=== PATIENT | male | born 1985 | race Caucasian/White ===

== ENCOUNTER 2021-02-09 18:02 | Emergency (ER) | payer OTHER, SELFPAY ==
[2021-02-09 18:02] VITALS: BP 167/87; PULSE 101; RESP 18; TEMP 35.4; O2SAT 97; BMI 39.1
--- NOTE | 2021-02-09 19:23 | CT_ITS ---
STUDY: CT Spine Cervical W/O Contrast Injection 02/09/2021 7:57 PM REASON FOR EXAM: Male, 35 years old. NECK PAIN TECHNIQUE: High resolution transaxial imaging was performed without intravenous administration of contrast material. Sagittal and coronal images were reconstructed. Individualized dose optimization techniques were used for this CT. COMPARISON: None FINDINGS: Normal craniovertebral junction. Normal anterior atlantoaxial articulation. Normal odontoid process. There is straightening of the normal cervical lordosis. Normal vertebral bodies and posterior osseous elements. C2-3: Normal endplates. Normal disc height and morphology. Normal central canal and intervertebral neuroforamina. C3-4: Normal endplates. Normal disc height and morphology. Normal central canal and intervertebral neuroforamina. C4-5: Normal endplates. Normal disc height and morphology. Normal central canal and intervertebral neuroforamina. C5-6: Normal endplates. Normal disc height and morphology. Normal central canal and intervertebral neuroforamina. C6-7: Normal endplates. Normal disc height and morphology. Normal central canal and intervertebral neuroforamina. C7-T1: Normal endplates. Normal disc height and morphology. Normal central canal and intervertebral neuroforamina. Normal visualized soft tissue structures. IMPRESSION: (NOT LISTED IN ORDER OF SIGNIFICANCE) There is altered curvature of the normal cervical lordosis. This can suggest neck strain. Electronically Signed: Antonio Christian MD at 19:58 EST , Service support , CT/Spine Cervical without Contras
--- NOTE | 2021-02-09 19:23 | CT_ITS ---
STUDY: CT BRAIN WITHOUT CONTRAST REASON FOR EXAM: Male, 35 years old. HEADACHE Injury/Pain Technologist Notes PT HIT RT SIDE OF HEAD ON TRUCK BUMPER TECHNIQUE: Transaxial CT imaging of the brain was performed without administration of intravenous contrast material. Individualized dose optimization techniques were used for this CT. COMPARISON: None FINDINGS: Normal calvarium. Normal soft tissues. Normal size ventricles and extra-axial spaces for the patient''s age. Normal white matter tracts of the cerebral hemispheres. Normal basal ganglia and thalami. Normal brainstem. Normal cerebellum. There is no intracranial hemorrhage. There are no findings of an acute ischemic infarction. Normal visualized paranasal sinuses. ASPECTS 10 CT/Brain/Head without Contrast IMPRESSION: There are no acute intracranial findings. Electronically Signed: Antonio Christian MD at 19:57 EST , Service support ,
--- NOTE | 2021-02-09 19:43 | EX.ED.GENINJ ---
HPI History of Present Illness Chief Complaint: Head Injury Informant: patient Onset/Context/Timing Onset: Today Mechanism/Context: Fall Location of pain/injuries: Right shoulder Quality of Pain: Aching Location: Right side of his head Worsened by: Bright lights Relieved by: Nothing Associated Symptoms Associated Symptoms: Negative for Parasthesias, Weakness, Loss of function, Inability to ambulate and Loss of consciousness Narrative Narrative: Patient presents with a head injury that occurred today. Patient states he slipped and fell while he was blowing leaves. Patient states his head hit the bumper of a truck and a railroad tie. Patient states his pain is mainly on the right side of his head. Patient denies any loss of consciousness. Patient complains of pain in his right shoulder as well. Patient describes his pain as aching. Patient states nothing makes it better but it is worse with bright lights. [facility] Medical History Asthma Home Medications loratadine [Claritin] 10 mg PO DAILY 02/09/21 [History Last Taken Unknown] omeprazole 20 mg PO DAILY 02/09/21 [History Last Taken Unknown] Allergy/AdvReac Type Severity Reaction Status Date / Time amoxicillin Allergy Swelling Verified 02/09/21 18:05 clarithromycin [From Biaxin] Allergy Swelling Verified 02/09/21 18:05 levofloxacin [From Levaquin] Allergy Other Verified 02/09/21 18:05 Penicillins Allergy Swelling Verified 02/09/21 18:05 Surgical History History of cholecystectomy Social History Smoking Status: Never smoker ROS ROS ED Constitutional Constitutional ED: Denies chills or fever(s) Eyes Eyes: Denies blurry vision or change in vision ENT ENT ED: Denies rhinorrhea or sore throat Cardiovascular Cardiovascular: Denies chest pain or palpitations Respiratory/Chest Respiratory/Chest: Denies cough or dyspnea Gastrointestinal Gastrointestinal: Reports nausea; Denies vomiting Genitourinary Genitourinary ED: Denies dysuria or hematuria Musculoskeletal Musculoskeletal: Reports neck pain; Denies back pain Integumentary Denies abscess or rash Neurologic Neurologic: Reports headache(s); Denies weakness Allergic/Immunologic Allergic/Immunologic ED: Denies mouth swelling or urticaria EXAM Physical Exam Const Vital Signs: 02/09/21 18:02 02/09/21 18:56 Temperature 95.8 F L Temperature Source Temporal Pulse Rate 101 H Respiratory Rate 18 Respiratory Effort Normal Respiratory Depth Normal Respiratory Pattern Normal Blood Pressure 167/87 H Blood Pressure Mean 113 Pulse Ox 97 Oxygen Delivery Method Room Air Positive well nourished and well developed General Appearance ED: well developed HEENT Reports moist mucous membranes HEENT Narrative: There is tenderness over the right parietal area. There is no bony crepitance or step-off. There is no edema or ecchymosis. Neck supple and no JVD Neck Narrative: There is some mild tenderness to the right cervical paraspinal muscles. There is no midline tenderness. There is no bony crepitance or step-off. Resp normal respiratory effort and clear to auscultation bilaterally Cardio regular rate, regular rhythm and no murmurs GI normal to inspection, nondistended, normoactive bowel sounds and non-tender Palpation: soft Extremity normal to inspection General Extremety ED: Negative for edema or tenderness General Extremity: Negative for edema Neuro oriented x3, CN's II-XII intact bilaterally and no sensory deficits noted Sensorium / Orientation: alert Motor Exam: strength 5/5 throughout Psych mental status grossly normal Skin no rashes or lesions noted MDM MDM MDM Narrative Medical decision making narrative: CT scan of the brain was obtained. There is no acute intracranial abnormality noted. CT scan of the cervical spine was obtained. There is no acute fracture or dislocation. There is no subluxation. There is no spondylolisthesis. These were interpreted by the radiologist and reviewed by myself. Patient was advised of his findings. Patient was instructed to rest in a dark quiet room. Patient was instructed to limit his screen time. Patient was instructed to take Tylenol or ibuprofen as needed for headaches. Patient was instructed to return if worse in any way. Patient understood and was agreeable with the plan. All questions were answered. Radiography Diagnostic Testing: Clinical Impression(s) from Imaging Studies Brain CT 02/09/21 19:23 IMPRESSION: There are no acute intracranial findings. Electronically Signed: Antonio Christian MD at 19:57 EST , Service support , Cervical Spine CT 02/09/21 19:23 Discharge Plan Triage Chief Complaint: Head Injury ED Provider: Braxton Vanegas Dx/Rx/DC Orders Clinical Impression: Closed head injury Instructions: ED Head Injury (Adult) Prescriptions: No Action loratadine [Claritin] 10 mg Tablet 10 mg PO DAILY RF: 0 omeprazole 20 mg Tablet,Delayed Release (Dr/Ec) 20 mg PO DAILY RF: 0 Primary Care Provider: Catracho Jeffrey Referrals: Catracho Jeffrey MD [Primary Care Provider] - 5-7 Days Disposition Disposition: Home, Self Care
[2021-02-09 21:08] VITALS: BP 123/75; PULSE 82; RESP 15; O2SAT 98
== END 2021-02-09 21:10 | disposition home or self-care (01) ==
PROVIDERS: Emergency Provider Emergency Medicine; PCP Internal Medicine
DX: S09.90XA Unspecified injury of head, initial encounter (principal); W01.198A Fall on same level from slipping, tripping and stumbling with subsequent striking against other object, initial encounter; Y93.H9 Activity, other involving exterior property and land maintenance, building and construction; Y92.9 Unspecified place or not applicable; Y99.9 Unspecified external cause status; M25.511 Pain in right shoulder; J45.909 Unspecified asthma, uncomplicated
CPT/HCPCS: 70450; 72125; 99282